=== PATIENT | male | born 1965 | race Caucasian/White ===

== ENCOUNTER 2022-06-20 13:41 | Outpatient (CLI) | payer OTHER, SELFPAY | END 2022-06-20 13:42 | disposition home or self-care (01) | PROVIDERS: PCP Family Medicine; Visit Provider Family Medicine | DX: M17.12 Unilateral primary osteoarthritis, left knee (principal); M25.562 Pain in left knee; G89.29 Other chronic pain | CPT/HCPCS: 64454 ==

== ENCOUNTER 2022-07-11 12:10 | Outpatient (CLI) | payer OTHER, SELFPAY | END 2022-07-11 12:11 | disposition home or self-care (01) | LOC: INJ CL 12:12 | PROVIDERS: PCP Family Medicine; Visit Provider Family Medicine | DX: M17.12 Unilateral primary osteoarthritis, left knee (principal); M25.562 Pain in left knee | CPT/HCPCS: 64624; J2250; J2405; J3010 ==

== ENCOUNTER 2022-08-15 14:11 | Outpatient (CLI) | payer OTHER, SELFPAY | END 2022-08-15 14:12 | disposition home or self-care (01) | LOC: INJ CL 14:11 | PROVIDERS: PCP Family Medicine; Visit Provider Family Medicine | DX: M17.11 Unilateral primary osteoarthritis, right knee (principal); M25.561 Pain in right knee | CPT/HCPCS: 64454 ==